=== PATIENT | male | born 1990 | race Caucasian/White ===

== ENCOUNTER 2019-07-01 13:15 | Emergency (ER) | payer MEDICAID ==
[~2019-07-01] VITALS: Ht 182.9 cm; Wt 86.2 kg
[2019-07-01 13:21] VITALS: BP_SYST 145
--- NOTE | 2019-07-01 13:21 | NUR ---
Patient to ER bed to gown for evaluation. Side rails up.
--- NOTE | 2019-07-01 13:30 | NUR ---
pt arrives with neck pain 02/19. No other c/o at the moment. Will continue to monitor.
--- NOTE | 2019-07-01 13:40 | NUR ---
ER at bedside examining patient.
--- NOTE | 2019-07-01 13:50 | NUR ---
Patient transported to radiology via w/c, accompanied by staff.
--- NOTE | 2019-07-01 14:10 | NUR ---
pt returned from radiology.
--- NOTE | 2019-07-01 14:52 | NUR ---
Patient given written and verbal discharge instructions and verbalizes understanding. ER MD discussed with patient the results and treatment provided. Patient in stable condition. ID arm band removed. Patient educated on pain management and to follow up with PMD. Pain Scale 3/10. Opportunity for questions provided and answered. Medication side effect fact sheet provided.
[2019-07-01 14:55] VITALS: BP_SYST 145
== END 2019-07-01 14:52 | disposition home or self-care (01) ==
LOC: SED 13:15
DX: S16.1XXA Strain of muscle, fascia and tendon at neck level, initial encounter (principal); M62.838 Other muscle spasm; X50.9XXA Other and unspecified overexertion or strenuous movements or postures, initial encounter; Y93.89 Activity, other specified; Y92.89 Other specified places as the place of occurrence of the external cause; Y99.8 Other external cause status
CPT/HCPCS: 72040-TC; 99283